=== PATIENT | male | born 1935 ===

== ENCOUNTER 2019-09-23 06:54 | Emergency (ER) | payer OTHER ==
[~2019-09-23] VITALS: Ht 177.8 cm; Wt 102.1 kg
[~2019-09-23 06:54] MED LIST: ACET325 PO; AMLO10 PO; Aspirin EC81 MG PO; DOCU100 PO; DONE5 PO; GABA600 PO; GAVILAX17 GM PO; HIGH POTENCY TP; LOSA50 PO; METCAR500 PO; METO25 PO; OXYC5 PO; PRED20 PO; SERT25 PO
[2019-09-23 07:25] LABS: BASOPHILS ABSOLUTE AUTO 0.05 K/mm3 (0.00-0.23); BASOPHILS PERCENT AUTO 0 % (0-2); EOSINOPHILS ABSOLUTE AUTO 0.12 K/mm3 (0.00-0.68); EOSINOPHILS PERCENT AUTO 1 % (0-6); Hemoglobin 10.1 g/dL (13.5-17.5); IMMATURE GRAN ABSOLUTE AUTO 0.07 K/mm3 (0.00-0.10); IMMATURE GRAN PERCENT AUTO 1 % (0-1); LYMPHOCYTES ABSOLUTE AUTO 1.18 K/mm3 (0.84-5.20); LYMPHOCYTES PERCENT AUTO 10 % (21-46); MONOCYTES ABSOLUTE AUTO 0.52 K/mm3 (0.16-1.47); MONOCYTES PERCENT AUTO 5 % (4-13); Mean Corpuscular HGB 30.9 pg (26.0-34.0); Mean Corpuscular HGB Conc 33.7 g/dL (31.5-36.5); Mean Corpuscular Volume 92 fL (80-100); Mean Platelet Volume 9.7 fL (9.1-12.4); NEUTROPHILS PERCENT AUTO 83 % (41-73); Platelet Count 272 K/mm3 (150-400); RDW Coefficient Variation 12.3 % (11.7-14.2); RDW Standard Deviation 41.6 fL (35.1-46.3); Red Blood Cell Count 3.27 M/mm3 (4.30-5.90); White Blood Cell Count 11.44 K/mm3 (4.00-11.30)
[2019-09-23] MEDS ORDERED: THERA-D2000 UNIT PO (07:50)
[2019-09-23 07:51] LABS: Ethanol (Alcohol), Blood, Med <3 mg/dL; Troponin I <0.015 ng/mL (0.000-0.040)
[2019-09-23] MEDS ORDERED: FLUOROURACIL30 GM TOP (07:51)
[2019-09-23] MEDS ORDERED: PANT40 PO (07:53)
[2019-09-23] MEDS ORDERED: THERA1 EACH PO (07:53)
[2019-09-23] MEDS ORDERED: Exelon1 EAC1 TD (07:54)
[2019-09-23] MEDS ORDERED: ZOCOR20 MG PO (07:54)
[2019-09-23 07:56] LABS: Albumin, Blood 3.5 g/dL (3.4-5.0); Albumin/Globulin Ratio 1.1 (0.8-1.8); Bilirubin, Total 0.2 mg/dL (0.1-1.0); Bun/Creatinine Ratio 10.4 (12.0-20.0); Calcium, Blood 8.6 mg/dL (8.5-10.1); Creatinine, Blood 2.6 mg/dL (0.60-1.20); Globulin, Blood 3.3 g/dL (2.2-4.0); Potassium, Blood 3.6 mmol/L (3.5-5.5); Total Protein, Blood 6.8 g/dL (6.4-8.2)
[2019-09-23 08:15] LABS: International Normalized Ratio 0.96; Prothrombin Time Results 10.3 Sec (9.7-11.5)
[2019-09-23 09:41] LABS: Source, Urine Clean Catch
[2019-09-23 09:48] LABS: Bilirubin, Urine Neg (Neg); Blood, Urine 4+ (Neg); Glucose Qualitative, Urine 2+ (Neg); Ketones, Urine Neg (Neg); Leukocyte Esterase, Urine Neg (Neg); Nitrite, Urine Neg (Neg); Protein, Urine 4+ (Neg); Specific Gravity, Urine 1.015 (1.003-1.022); Urobilinogen, Urine NORM (Normal); pH, Urine 6.5 (5.0-8.0)
[2019-09-23 10:01] LABS: Appearance, Urine Clear (Clear); Color, Urine Yellow (P-Yellow)
[2019-09-23 10:04] LABS: Granular Casts Rare /lpf (0)
[2019-09-23 10:05] LABS: Bacteria Rare /hpf; Squamous Epithelial Cells Rare /hpf (Few)
== END 2019-09-23 14:11 | disposition home or self-care (01) ==
LOC: ER 06:54
PROVIDERS: Emergency Medicine
DX: R41.82 Altered mental status, unspecified (principal); F03.90 Unspecified dementia, unspecified severity, without behavioral disturbance, psychotic disturbance, mood disturbance, and anxiety; K80.20 Calculus of gallbladder without cholecystitis without obstruction; E86.0 Dehydration; E11.40 Type 2 diabetes mellitus with diabetic neuropathy, unspecified; E11.22 Type 2 diabetes mellitus with diabetic chronic kidney disease; N18.9 Chronic kidney disease, unspecified; E78.5 Hyperlipidemia, unspecified; Z88.8 Allergy status to other drugs, medicaments and biological substances; Z79.899 Other long term (current) drug therapy; Z79.82 Long term (current) use of aspirin
CPT/HCPCS: 36415; 70450; 71045; 72125; 72170; 74176; 80053; 81001; 83690; 84484; 85025; 85610; 93005; 93010; 96374; 99285-25; G0480; J2405